=== PATIENT | male | born 1955 | race African-American/Black ===

== ENCOUNTER 2022-07-14 12:42 | Outpatient (CLI) | payer MEDICARE ==
[2022-07-14 13:57] LABS: Hemoglobin 12.7 g/dL (13.5-17.5); Mean Corpuscular HGB CONC 31.4 g/dL (32.0-36.0); Mean Corpuscular Hemoglobin 27.2 pg (27.0-33.0); Mean Corpuscular Volume 86.5 fl (81.2-95.1); Mean Platelet Volume 13.1 fl (7.4-10.4); Platelet Count 128 10x3/uL (150-450); RBC Distribution Width 12.9 % (11.5-14.5); Red Blood Cell (RBC) Count 4.67 10x6/uL (4.32-5.72); White Blood Cell (WBC) Count 5.3 10x3/uL (3.5-10.5)
[2022-07-14 14:05] LABS: PTT 25.9 sec (22.0-33.0); Prothrombin Time 11.2 sec (9.5-12.1)
[2022-07-14 14:08] LABS: Bilirubin Neg (Negative); Blood, Urine Negative (Negative); Clarity Clear (Clear); Glucose, Urine (Dipstick) Normal (Negative); Ketone, Urine Negative (Negative); Leukocyte Negative (Negative); Nitrite Negative (Negative); Protein, Urine (Dipstick) Negative (Neg-Trace); Specific Gravity, Urine 1.025 (1.005-1.030); Urobilinogen Normal mg/dL (Less than 2)
[2022-07-14 14:19] LABS: Anion Gap 12 mmol/L (10-20); BUN (Urea Nitrogen) 13 mg/dL (8.4-25.7); Calc. Creatinine Clearance 0 mL/min (70-130); Carbon Dioxide 26 mmol/L (23-31); Chloride 106 mmol/L (98-107); Estimated GFR 91; Glucose 81 mg/dL (80-115); Sodium 140 mmol/L (136-145)
[2022-07-14 14:45] LABS: RBC/HPF 0-3 HPF (0-3); WBC/HPF 0-3 HPF (0-3)
[2022-07-14 14:47] LABS: Mucous/LPF 4+ LPF (<2+); Squamous Epithelial 0-3 HPF (0-3)
== END 2022-07-14 12:43 | disposition home or self-care (01) ==
LOC: LABBT 12:42
PROVIDERS: ATTEND Urology
DX: Z01.818 Encounter for other preprocedural examination (principal); I11.9 Hypertensive heart disease without heart failure; N43.3 Hydrocele, unspecified; I65.1 Occlusion and stenosis of basilar artery; I63.9 Cerebral infarction, unspecified; I65.29 Occlusion and stenosis of unspecified carotid artery
CPT/HCPCS: 80048; 81001; 85027; 85610; 85730; 87086; 93005; 93010

== ENCOUNTER 2024-03-14 19:41 | Inpatient (IN) | payer OTHER ==
[2024-03-15 00:19] LABS: Platelet Count 22 10x3/uL (130-400)
[2024-03-15 00:30] LABS: Fibrinogen 323 mg/dL (253-463)
[2024-03-15 00:31] LABS: INR-International Normal Ratio 1.2; PTT 29.9 sec (22.9-36.1); Prothrombin Time 15.1 sec (12.0-14.7)
[2024-03-15 00:32] LABS: D-Dimer Test 0.34 mcg/mL (0.27-0.43)
[2024-03-15 00:54] LABS: HBsAg Index 0.36 S/CO (0-0.99); HIV (1/2) Antibody/Antigen NONREACTIVE (NonReactive); HIV 1/2 INDEX 0.05 S/CO (<1.00); Hep A IgM AB NONREACTIVE (NonReactive); Hep A IgM S/CO 0.19 S/CO (0-0.79); Hep B Surf Ag NONREACTIVE S/CO (NonReactive); Hep C IgG Ab NONREACTIVE S/CO (NonReactive); Hep C Index 0.13 S/CO (0-0.79); Hepatitis B Core IgM Abs NONREACTIVE S/CO (NonReactive)
[2024-03-15 03:05] LABS: Vitamin B12 417 pg/mL (211-911)
[2024-03-15 04:40] VITALS: BMI 19.9
[2024-03-15 05:00] LABS: Hematocrit 35.4 % (42.0-52.0); Hemoglobin 11.5 g/dL (14.0-18.0); Mean Corpuscular HGB CONC 32.5 g/dL (32.0-36.0); Mean Corpuscular Hemoglobin 27.9 pg (27.0-31.0); Mean Corpuscular Volume 85.9 fL (78.0-98.0); Platelet Count 19 10x3/uL (130-400); RBC Distribution Width 13.2 % (11.5-14.5); Red Blood Cell (RBC) Count 4.12 mill/uL (4.70-6.10)
[2024-03-15 05:03] LABS: ALT (SGPT) 11 U/L (8-55); AST (SGOT) 19 U/L (5-34); Albumin 3.3 g/dL (3.4-4.8); Alkaline Phosphatase 73 U/L (40-110); Anion Gap 12 mmol/L (10-20); BUN (Urea Nitrogen) 14 mg/dL (8.4-25.7); Bilirubin, Total 0.4 mg/dL (0.2-1.2); Calc. Creatinine Clearance 93 mL/min (70-130); Calcium 8.8 mg/dL (7.8-10.44); Carbon Dioxide 23 mmol/L (23-31); Chloride 110 mmol/L (98-107); Estimated GFR 99; Globulin 4.1 g/dL (2.4-3.5); Glucose 93 mg/dL (80-115); Potassium 3.7 mmol/L (3.5-5.1); Protein, Total 7.4 g/dL (5.8-8.1); Sodium 141 mmol/L (136-145)
[2024-03-15 05:43] LABS: Anisocytosis SLIGHT = 6-15 cells HPF (0-5); Band 3 % (5-11); Eosinophils 3 % (0-10); Lymphocytes 40 % (21-51); Metamyelocyte 1 % (0-0); Monocytes 6 % (0-10); Neutrophil 47 % (42-75); Ovalocytes MODERATE= 6-15 cells HPF (0-1); Platelet Adequacy Comment Significant Decrease; Polychromasia SLIGHT = 2-3 cells HPF (0-2); Reflex for Review?? YES; Schistocytes SLIGHT = 2-5 cells HPF (0-1)
[2024-03-15 07:58] LABS: INR-International Normal Ratio 1.2; Prothrombin Time 15.1 sec (12.0-14.7)
[2024-03-15] MEDS: Carvedilol 25 MG TAB PO SCH (08:40)
[2024-03-15] MEDS: Lisinopril 20 MG TAB PO SCH (08:40)
[2024-03-15] MEDS: Amlodipine 10 MG TAB PO SCH ×2 (08:40→19:57)
[2024-03-15] MEDS: Atorvastatin Calcium 40 MG TAB PO SCH (19:58)
[2024-03-16 04:30] LABS: #Basophils Less than 0.03 10x3/uL (0.0-0.2); %Basophils 0.4 % (0.0-1.0); %Eosinophils 3.2 % (0.0-10.0); %Lymphocytes 43.1 % (21.0-51.0); %Monocytes 9.9 % (0.0-10.0); %Neutrophils 43.2 % (42.0-75.0); Hemoglobin 11.4 g/dL (14.0-18.0); Mean Corpuscular HGB CONC 32.6 g/dL (32.0-36.0); Platelet Count 20 10x3/uL (130-400); RBC Distribution Width 13.2 % (11.5-14.5); Red Blood Cell (RBC) Count 4.07 mill/uL (4.70-6.10)
[2024-03-16 04:37] LABS: ALT (SGPT) 10 U/L (8-55); AST (SGOT) 18 U/L (5-34); Albumin 3.3 g/dL (3.4-4.8); Alkaline Phosphatase 73 U/L (40-110); Anion Gap 10 mmol/L (10-20); BUN (Urea Nitrogen) 12 mg/dL (8.4-25.7); Bilirubin, Total 0.5 mg/dL (0.2-1.2); Calc. Creatinine Clearance 76 mL/min (70-130); Calcium 8.7 mg/dL (7.8-10.44); Carbon Dioxide 24 mmol/L (23-31); Chloride 108 mmol/L (98-107); Estimated GFR 92; Globulin 4.3 g/dL (2.4-3.5); Glucose 92 mg/dL (80-115); Potassium 3.7 mmol/L (3.5-5.1); Protein, Total 7.6 g/dL (5.8-8.1); Sodium 138 mmol/L (136-145)
[2024-03-16] MEDS: Hydrochlorothiazide 25 MG TAB PO SCH (08:49)
[2024-03-16 13:27] LABS: Bacteria/HPF None Seen HPF (None Seen); Bilirubin Negative (Negative); Blood, Urine Negative (Negative); Clarity Clear (Clear); Glucose, Urine (Dipstick) Normal (Negative); Ketone, Urine Negative (Negative); Leukocyte Negative Leu/uL (Negative); Nitrite Negative (Negative); Protein, Urine (Dipstick) Negative (Neg-Trace); RBC/HPF None Seen HPF (0-3); Specific Gravity, Urine 1.001 (1.002-1.036); Squamous Epithelial None Seen HPF (0-3); Urobilinogen Normal mg/dL (Less than 2); WBC/HPF 0-3 HPF (0-3); pH, Urine 6.5 (5.0-9.0)
[2024-03-17 05:06] LABS: #Basophils 0.03 10x3/uL (0.0-0.2); %Basophils 0.5 % (0.0-1.0); %Eosinophils 3.3 % (0.0-10.0); %Lymphocytes 37.4 % (21.0-51.0); %Monocytes 9.1 % (0.0-10.0); %Neutrophils 49.5 % (42.0-75.0); Hematocrit 35.7 % (42.0-52.0); Hemoglobin 11.7 g/dL (14.0-18.0); Mean Corpuscular HGB CONC 32.8 g/dL (32.0-36.0); Mean Corpuscular Hemoglobin 28.1 pg (27.0-31.0); Mean Corpuscular Volume 85.6 fL (78.0-98.0); Platelet Count 17 10x3/uL (130-400); RBC Distribution Width 13.2 % (11.5-14.5); Red Blood Cell (RBC) Count 4.17 mill/uL (4.70-6.10)
[2024-03-17 05:13] LABS: ALT (SGPT) 11 U/L (8-55); AST (SGOT) 19 U/L (5-34); Albumin 3.4 g/dL (3.4-4.8); Alkaline Phosphatase 73 U/L (40-110); Anion Gap 13 mmol/L (10-20); BUN (Urea Nitrogen) 17 mg/dL (8.4-25.7); Bilirubin, Total 0.4 mg/dL (0.2-1.2); Calc. Creatinine Clearance 78 mL/min (70-130); Carbon Dioxide 24 mmol/L (23-31); Chloride 105 mmol/L (98-107); Estimated GFR 94; Globulin 4.6 g/dL (2.4-3.5); Glucose 100 mg/dL (80-115); Potassium 3.6 mmol/L (3.5-5.1); Sodium 138 mmol/L (136-145)
[2024-03-18 05:13] LABS: ALT (SGPT) 11 U/L (8-55); AST (SGOT) 19 U/L (5-34); Albumin 3.5 g/dL (3.4-4.8); Alkaline Phosphatase 75 U/L (40-110); Anion Gap 12 mmol/L (10-20); BUN (Urea Nitrogen) 17 mg/dL (8.4-25.7); Bilirubin, Total 0.4 mg/dL (0.2-1.2); Calc. Creatinine Clearance 80 mL/min (70-130); Calcium 8.9 mg/dL (7.8-10.44); Carbon Dioxide 26 mmol/L (23-31); Chloride 105 mmol/L (98-107); Estimated GFR 95; Globulin 4.6 g/dL (2.4-3.5); Glucose 99 mg/dL (80-115); Potassium 3.6 mmol/L (3.5-5.1); Protein, Total 8.1 g/dL (5.8-8.1); Sodium 139 mmol/L (136-145)
[2024-03-18 05:18] LABS: #Basophils Less than 0.03 10x3/uL (0.0-0.2); %Basophils 0.3 % (0.0-1.0); %Eosinophils 2.4 % (0.0-10.0); %Lymphocytes 37.1 % (21.0-51.0); %Monocytes 10.1 % (0.0-10.0); %Neutrophils 49.9 % (42.0-75.0); Hematocrit 36.5 % (42.0-52.0); Hemoglobin 11.7 g/dL (14.0-18.0); Mean Corpuscular HGB CONC 32.1 g/dL (32.0-36.0); Mean Corpuscular Hemoglobin 27.7 pg (27.0-31.0); Mean Corpuscular Volume 86.3 fL (78.0-98.0); Platelet Count 18 10x3/uL (130-400); RBC Distribution Width 13.3 % (11.5-14.5); Red Blood Cell (RBC) Count 4.23 mill/uL (4.70-6.10)
[2024-03-18] MEDS ORDERED: fentaNYL 50 mcg/mL 1 mL Vial ONE (09:10)
[2024-03-18] MEDS ORDERED: Sodium Bicarbonate 2.5 MEQ/5 ML SDV ONE (09:10)
[2024-03-18] MEDS ORDERED: Lidocaine 1% w/Epinephrine 1:100K 20 ML VIAL ONE (09:10)
[2024-03-18] MEDS ORDERED: Midazolam HCl 2 mg/2 ml Vial ONE (09:10)
[2024-03-19 05:34] LABS: #Basophils Less than 0.03 10x3/uL (0.0-0.2); %Basophils 0.3 % (0.0-1.0); %Eosinophils 2.4 % (0.0-10.0); %Lymphocytes 39.4 % (21.0-51.0); %Monocytes 9.9 % (0.0-10.0); %Neutrophils 47.8 % (42.0-75.0); Hematocrit 35.3 % (42.0-52.0); Hemoglobin 11.7 g/dL (14.0-18.0); Mean Corpuscular HGB CONC 33.1 g/dL (32.0-36.0); Mean Corpuscular Hemoglobin 28.3 pg (27.0-31.0); Mean Corpuscular Volume 85.5 fL (78.0-98.0); Platelet Count 14 10x3/uL (130-400); RBC Distribution Width 13.2 % (11.5-14.5); Red Blood Cell (RBC) Count 4.13 mill/uL (4.70-6.10)
[2024-03-19 05:36] LABS: ALT (SGPT) 12 U/L (8-55); AST (SGOT) 19 U/L (5-34); Albumin 3.4 g/dL (3.4-4.8); Alkaline Phosphatase 74 U/L (40-110); Anion Gap 10 mmol/L (10-20); BUN (Urea Nitrogen) 17 mg/dL (8.4-25.7); Bilirubin, Total 0.4 mg/dL (0.2-1.2); Calc. Creatinine Clearance 75 mL/min (70-130); Calcium 8.7 mg/dL (7.8-10.44); Carbon Dioxide 26 mmol/L (23-31); Chloride 106 mmol/L (98-107); Estimated GFR 90; Globulin 4.6 g/dL (2.4-3.5); Glucose 93 mg/dL (80-115); Potassium 3.6 mmol/L (3.5-5.1); Sodium 138 mmol/L (136-145)
[2024-03-19 12:09] LABS: ANA Symphony (Qualitative) Equivocal: See Note (Negative); ANA Symphony (Quantitative) 0.7 Ratio (< 0.7 Negative); Cardiolipin IgG Ab 3.1 GPL-U/mL (<10 Negative); Cardiolipin IgM Ab 4.4 MPL-U/mL (<10 Negative); EliA APS New Method **** NEW METHOD ****; beta-2-Glycoprotein I IgA Ab 3.9 U/mL (<7 Negative); beta-2-Glycoprotein I IgG Ab 2.3 U/mL (<7 Negative); beta-2-Glycoprotein I IgM Abs 3.5 U/mL (<7 Negative); dsDNA IgG Antibody 5.8 IU/mL (<10 Negative)
[2024-03-19] MEDS: Dexamethasone 4 MG TAB PO SCH (15:28)
[2024-03-20 06:00] LABS: #Basophils Less than 0.03 10x3/uL (0.0-0.2); #Eosinophils Less than 0.03 10x3/uL (0.0-0.7); %Lymphocytes 20.5 % (21.0-51.0); %Monocytes 1.6 % (0.0-10.0); %Neutrophils 77.7 % (42.0-75.0); Hematocrit 36.7 % (42.0-52.0); Mean Corpuscular HGB CONC 32.7 g/dL (32.0-36.0); Mean Corpuscular Hemoglobin 27.4 pg (27.0-31.0); Mean Corpuscular Volume 83.8 fL (78.0-98.0); Platelet Count 24 10x3/uL (130-400); RBC Distribution Width 12.8 % (11.5-14.5); Red Blood Cell (RBC) Count 4.38 mill/uL (4.70-6.10)
[2024-03-20] MEDS: Dexamethasone 4 MG TAB PO SCH (08:02)
[2024-03-20] MEDS: Lansoprazole 30 MG/10 ML UDCUP PER TUBE SCH (09:46)
[2024-03-21 06:19] LABS: #Basophils Less than 0.03 10x3/uL (0.0-0.2); #Eosinophils Less than 0.03 10x3/uL (0.0-0.7); %Basophils 0.1 % (0.0-1.0); %Lymphocytes 7.6 % (21.0-51.0); %Monocytes 3.7 % (0.0-10.0); %Neutrophils 87.8 % (42.0-75.0); Hematocrit 35.1 % (42.0-52.0); Hemoglobin 11.6 g/dL (14.0-18.0); Mean Corpuscular Hemoglobin 27.8 pg (27.0-31.0); Platelet Count 29 10x3/uL (130-400); RBC Distribution Width 13.2 % (11.5-14.5); Red Blood Cell (RBC) Count 4.18 mill/uL (4.70-6.10)
[2024-03-21 11:55] VITALS: BP 116/55; TEMP 97.6
[2024-03-26 11:15] LABS: Reference Lab Name NEO
== END 2024-03-21 13:59 | disposition home or self-care (01) | DRG 813 ==
LOC: SURG A 19:41
PROVIDERS: ADMIT Emergency Medicine; ATTEND Emergency Medicine
PROC: 079T3ZX Drainage of Bone Marrow, Percutaneous Approach, Diagnostic (ICD-10-PCS; principal; 2024-03-18)
PROC: 07DR3ZX Extraction of Iliac Bone Marrow, Percutaneous Approach, Diagnostic (ICD-10-PCS; 2024-03-18)
DX: D69.3 Immune thrombocytopenic purpura (principal); E78.5 Hyperlipidemia, unspecified; D64.9 Anemia, unspecified; I10 Essential (primary) hypertension; Z86.73 Personal history of transient ischemic attack (TIA), and cerebral infarction without residual deficits; Z87.890 Personal history of sex reassignment; Z79.899 Other long term (current) drug therapy; Z79.82 Long term (current) use of aspirin
CPT/HCPCS: 36415; 38222; 77012; 80053; 80074; 81001; 82607; 83010; 83615; 84443; 85025; 85046; 85049; 85060; 85097; 85300; 85362; 85384; 85598; 85610; 85613; 85730; 86038; 86146; 86147; 86225; 86860; 86870; 86880; 86900; 86901; 87389; 88184; 88185; 88189; 88237; 88264; 88280; 88305; 88311; 88313; 88341; 88342; 88365; J2250; J3010; J8540